=== PATIENT | male | born 1985 | race Asian ===

== ENCOUNTER → 2017-01-07 | Emergency (ER) | payer OTHER ==
[~2017-01-07] MED LIST: IBUPROFEN 400 MG TABLET (FP) PO ONE
--- NOTE | 2017-01-07 04:24 | PDOC ---
History of Present Illness - General History Source: Patient, Old Records Exam Limitations: No Limitations - History of Present Illness Initial Comments: 01/07/17 04:27 The patient is a 31 year old male with no significant past medical history, who presents to the emergency department today with right sided flank pain and right lower quadrant abdominal pain for 2 weeks. The patient states that his pain was worse today than at any point over the last 2 weeks. The patient states that he has never experienced symptoms like this before. The patient denies nausea, vomiting, and/or urinary problems. PCP: Dr. Franck Earl [phone] PAST MEDICAL HISTORY: No significant history reported PAST SURGICAL HISTORY: Right corneal surgery FAMILY HISTORY: Denied SOCIAL HISTORY: Occasional [place] use ALLERGIES: NKDA MEDICATIONS: Reviewed <Vinay Telles - Last Filed: 01/07/17 04:27> - General History Source: Patient <Lazaro Duvall - Last Filed: 01/07/17 05:20> - General Chief Complaint: Pain, Acute Stated Complaint: LWR RT SIDE ABD PAIN/FLANK PAIN Time Seen by Provider: 01/07/17 04:21 Past History <Vinay Telles - Last Filed: 01/07/17 04:27> - Psycho/Social/Smoking Cessation Hx Anxiety: No Suicidal Ideation: No Smoking History: Current some day smoker Information on smoking cessation initiated: No Hx Alcohol Use: No Drug/Substance Use Hx: No Substance Use Type: None <Lazaro Duvall - Last Filed: 01/07/17 05:20> - Past Medical History Allergies/Adverse Reactions: Allergies Allergy/AdvReac Type Severity Reaction Status Date / Time No Known Allergies Allergy Verified 01/07/17 03:53 Home Medications: Ambulatory Orders Ibuprofen 800 mg PO TID #30 tablet 01/07/17 Review of Systems - Review of Systems Able to Perform ROS?: Yes Comments:: 01/07/17 04:27 CONSTITUTIONAL: Absent: fever, chills, diaphoresis, generalized weakness, malaise, loss of appetite HEENT: Absent: rhinorrhea, nasal congestion, throat pain, throat swelling, difficulty swallowing, mouth swelling, ear pain, eye pain, visual Changes CARDIOVASCULAR: Absent: chest pain, syncope, palpitations, irregular heart rate, lightheadedness , peripheral edema RESPIRATORY: Absent: cough, shortness of breath, dyspnea with exertion, orthopnea, wheezing, stridor, hemoptysis GASTROINTESTINAL: Present: Abdominal pain Absent: abdominal distension, nausea, vomiting, diarrhea, constipation, melena, hematochezia GENITOURINARY: Absent: dysuria, frequency, urgency, hesitancy, hematuria, flank pain, genital pain MUSCULOSKELETAL: Present: Right flank pain. Absent: Neck pain SKIN: Absent: rash, itching, pallor HEMATOLOGIC/IMMUNOLOGIC: Absent: easy bleeding, easy bruising, lymphadenopathy, frequent infections ENDOCRINE: Absent: unexplained weight gain, unexplained weight loss, heat intolerance, cold intolerance NEUROLOGIC: Absent: headache, focal weakness or paresthesias, dizziness, unsteady gait, seizure, mental status changes, bladder or bowel incontinence PSYCHIATRIC: Absent: anxiety, depression, suicidal or homicidal ideation, hallucinations. <Vinay Telles - Last Filed: 01/07/17 04:27> *Physical Exam - Vital Signs Last Vital Signs Temp Pulse Resp BP Pulse Ox 98.2 F 81 18 120/87 100 01/07/17 03:52 01/07/17 03:52 01/07/17 03:52 01/07/17 03:52 01/07/17 03:52 - Physical Exam Comments: 01/07/17 04:27 GENERAL: Well developed, well nourished. Awake and alert. In no acute distress. HEENT: Normocephalic, atraumatic. PERRLA, EOMI. No conjunctival pallor. Sclerae are non -icteric. Moist mucous membranes. Oropharynx is clear. NECK: Supple. Full ROM. No JVD. Carotid pulses 2+ and symmetric, without bruits. No thyromegaly. No lymphadenopathy. CARDIOVASCULAR: Regular rate and rhythm. No murmurs, rubs, or gallops. Distal pulses are 2+ and symmetric. PULMONARY: No evidence of respiratory distress. Lungs clear to auscultation bilaterally. No wheezing, rales or rhonchi. ABDOMINAL: Soft. RLQ and right flank tenderness on palpation. Non-distended. No rebound or guarding. No organomegaly. Normoactive bowel sounds. MUSCULOSKELETAL Normal range of motion at all joints. No bony deformities or tenderness. No CVA tenderness. EXTREMITIES: No cyanosis. No clubbing. No edema. No calf tenderness. SKIN: Warm and dry. Normal capillary refill. No rashes. No jaundice. NEUROLOGICAL: Alert, awake, appropriate. Cranial nerves 2-12 intact. No deficits to light touch and temperature in face, upper extremities and lower extremities. No motor deficits in the in face, upper extremities and lower extremities. Normoreflexic in the upper and lower extremities. Normal speech. Toes are downgoing bilaterally. Gait is normal without ataxia. PSYCHIATRIC: Cooperative. Good eye contact. Appropriate mood and affect. <Vinay Telles - Last Filed: 01/07/17 04:27> - Vital Signs Last Vital Signs Temp Pulse Resp BP Pulse Ox 98.2 F 81 18 120/87 100 01/07/17 03:52 01/07/17 03:52 01/07/17 03:52 01/07/17 03:52 01/07/17 03:52 <Lazaro Duvall - Last Filed: 01/07/17 05:20> ED Treatment Course - RADIOLOGY Radiology Studies Ordered: Category Date Time Status SPIRAL- RENAL-STONE CT [CT] Stat CT Scan 01/07/17 04:21 Ordered <Lazaro Duvall - Last Filed: 01/07/17 05:20> Medical Decision Making - Medical Decision Making 01/07/17 05:17 Dr. Duvall: The scribe's documentation has been prepared under my direction and personally reviewed by me in its entirery. I confirm that the note above accurately reflects all work, treatment, procedures, and medical decision making performed by me. <Lazaro Duvall - Last Filed: 01/07/17 05:20> *DC/Admit/Observation/Transfer - Attestations Scribe Attestion: 01/07/17 04:27 Documentation prepared by Vinay Telles, acting as medical records receptionist for Lazaro Duvall DO. <Vinay Telles - Last Filed: 01/07/17 04:27> - Discharge Dispostion Admit: No <Lazaro Duvall - Last Filed: 01/07/17 05:20> Diagnosis at time of Disposition: Right flank pain - Discharge Dispostion Disposition: HOME Condition at time of disposition: Stable - Prescriptions Prescriptions: Ibuprofen 800 mg PO TID #30 tablet - Referrals Referrals: Adrián Earl MD [Primary Care Provider] - Yuri Ulloa MD [Staff Physician] - - Patient Instructions Printed Discharge Instructions: DI for Flank Pain
[2017-01-07 04:45] VITALS: PULSE 81; TEMP 98.2; BMI 22.4
[2017-01-07 04:51] LABS: URINE APPEARANCE CLEAR; URINE BILIRUBIN NEGATIVE (NEGATIVE); URINE COLOR LTYELLOW; URINE GLUCOSE (UA) NEGATIVE (NEGATIVE); URINE KETONE NEGATIVE (NEGATIVE); URINE LEUK ESTERASE NEGATIVE (NEGATIVE); URINE NITRITE NEGATIVE (NEGATIVE); URINE PROTEIN NEGATIVE (NEGATIVE); URINE UROBILINOGEN NEGATIVE E.U./dl (0.2-1.0)
[2017-01-07 05:02] LABS: URINE BLOOD 1+ (NEGATIVE)
[2017-01-07 05:04] LABS: URINE MUCUS RARE; URINE RBC 2 /hpf (0-3); URINE WBC 1 /hpf (3-5)
[2017-01-07 05:28] VITALS: BP 131/76
== END | disposition home or self-care (01) ==
LOC: JER 03:46
DX: R10.31 Right lower quadrant pain (principal)
CPT/HCPCS: 74176; 81003; 81015; 87086; 99283-25

== ENCOUNTER 2018-07-23 23:27 | Emergency (ER) | payer OTHER ==
[2018-07-23 23:41] VITALS: BMI 21.9
[2018-07-24] MEDS ORDERED: FAMOTIDINE 20 MG/50 ML IVPB 20 MG/50 ML MG IVPB ONE ×2 (00:02→00:57)
[2018-07-24] MEDS ORDERED: SODIUM CHLORIDE 1,000 ML IV STA (00:02)
[2018-07-24] MEDS ORDERED: ONDANSETRON 4 MG/2 ML VIAL IVPUSH ONE (00:02)
--- NOTE | 2018-07-24 00:13 | PDOC ---
History of Present Illness - General Chief Complaint: Nausea/Vomiting Stated Complaint: NAUSEA/VOMITING Time Seen by Provider: 07/23/18 23:53 History Source: Patient Exam Limitations: No Limitations - History of Present Illness Initial Comments: 07/24/18 00:08 Patient is a 33M with history of anxiety and appendectomy here today complaining of 1 week of vomiting. He states that he vomits after every meal he eats and states that it is because of stress from work. Denies blood in vomit. Patient endorses associated epigastric abdominal pain. Denies fevers, chills, dysuria. Last bowel movement today, no diarrhea or constipation. Describes abdominal pain as a burning squeezing pain. Past History - Past Medical History Allergies/Adverse Reactions: Allergies Allergy/AdvReac Type Severity Reaction Status Date / Time No Known Allergies Allergy Verified 07/23/18 23:41 Home Medications: Ambulatory Orders Escitalopram Oxalate [Lexapro -] 10 mg PO DAILY 07/24/18 Hydroxyzine HCl 10 mg PO DAILY 07/24/18 COPD: No CHF: No - Suicide/Smoking/Psychosocial Hx Smoking History: Never smoked Have you smoked in the past 12 months: No Information on smoking cessation initiated: No Hx Alcohol Use: No Drug/Substance Use Hx: No Substance Use Type: None Review of Systems - Review of Systems Comments:: 07/24/18 00:11 GENERAL/CONSTITUTIONAL: No fever or chills. No weakness. HEAD, EYES, EARS, NOSE AND THROAT: No change in vision. No sore throat. CARDIOVASCULAR: No chest pain or shortness of breath RESPIRATORY: No cough, wheezing, or hemoptysis. GASTROINTESTINAL: +nausea, +vomiting, no diarrhea or constipation. GENITOURINARY: No dysuria, frequency, or change in urination. MUSCULOSKELETAL: No joint or muscle swelling or pain. No neck or back pain. SKIN: No rash NEUROLOGIC: No headache, vertigo, loss of consciousness, or change in strength/ sensation. ENDOCRINE: No increased thirst. No abnormal weight change HEMATOLOGIC/LYMPHATIC: No anemia, easy bleeding, or history of blood clots. ALLERGIC/IMMUNOLOGIC: No hives or skin allergy. *Physical Exam - Vital Signs Last Vital Signs Temp Pulse Resp BP Pulse Ox 98.3 F 86 17 119/64 97 07/23/18 23:39 07/23/18 23:39 07/23/18 23:39 07/23/18 23:39 07/23/18 23:39 - Physical Exam Comments: 07/24/18 00:12 GENERAL: Awake, alert, and fully oriented, in no acute distress HEAD: No signs of trauma, normocephalic, atraumatic EYES: PERRLA, EOMI, sclera anicteric, conjunctiva clear ENT: Auricles normal inspection, hearing grossly normal, nares patent, oropharynx clear without exudates. Moist mucosa NECK: Normal ROM, supple, no lymphadenopathy, JVD, or masses LUNGS: No distress, speaks full sentences, clear to auscultation bilaterally HEART: Regular rate and rhythm, normal S1 and S2, no murmurs, rubs or gallops, peripheral pulses normal and equal bilaterally. ABDOMEN: Soft, nontender, normoactive bowel sounds. No guarding, no rebound. No masses EXTREMITIES: Normal inspection, Normal range of motion, no edema. No clubbing or cyanosis. NEUROLOGICAL: Cranial nerves II through XII grossly intact. Normal speech, no focal sensorimotor deficits SKIN: Warm, Dry, normal turgor, no rashes or lesions noted. Moderate Sedation - Procedure Monitoring Vital Signs: Procedure Monitoring Vital Signs Temperature 98.3 F 07/23/18 23:39 Pulse Rate 86 07/23/18 23:39 Respiratory Rate 17 07/23/18 23:39 Blood Pressure 119/64 07/23/18 23:39 O2 Sat by Pulse Oximetry (%) 97 07/23/18 23:39 ED Treatment Course - LABORATORY CBC & Chemistry Diagram: 07/24/18 00:37 07/24/18 00:37 Medical Decision Making - Medical Decision Making 07/24/18 00:12 Patient is 33M with history of appendectomy and anxiety/depression here today with vomiting x1 week. Vitals normal and stable. Nontender on exam. Patient appears well. Do not suspect acute intraabdominal process. Will evaluate for metabolic abnormalities and treat with fluids, zofran, pepcid. 07/24/18 02:30 CBC, CMP normal. UA normal. Patient tolerating PO. Will discharge home with GI follow up. *DC/Admit/Observation/Transfer Diagnosis at time of Disposition: Vomiting - Discharge Dispostion Disposition: HOME Condition at time of disposition: Good Decision to Admit order: No - Referrals Referrals: Adrián Earl MD [Primary Care Provider] - Alpesh Gutierres MD [Staff Physician] - - Patient Instructions Printed Discharge Instructions: DI for Vomiting -- Adult Additional Instructions: Please follow up with the GI doctor below. Please return if you have any new, worsening or concerning symptoms, especially increasing pain, repeated vomiting and fever. - Post Discharge Activity
--- NOTE | 2018-07-24 00:25 | PDOC ---
Attending Attestation - Resident Resident Name: Tho Connell - ED Attending Attestation I have performed the following: I have examined & evaluated the patient, The case was reviewed & discussed with the resident, I agree w/resident's findings & plan, Exceptions are as noted - HPI HPI: 07/24/18 00:24 33y M hx of anxiety, presents with 1 week of vomiting with any oral intake associated with some epigastric burning, and loose nonbloody stool. Pt notes the sypmtoms are worse when he sits/rests. pt evin any fever/chills, sob, parkinson, blood in stool or vomiting. no sick contacts or recent travel. - Physicial Exam PE: 07/24/18 00:42 GENERAL: The patient is awake, alert, and fully oriented, Nontoxic - in no acute distress. HEAD: Normocephalic, atraumatic. EYES: extraocular movements intact, sclera anicteric, conjunctiva clear. ENT: Normal voice, Moist mucous membranes. NECK: Normal range of motion, supple LUNGS: Breath sounds equal, clear to auscultation bilaterally. No wheezes, no rhonchi, no rales. HEART: Regular rate and rhythm, normal S1 and S2 without murmur, rub or gallop. ABDOMEN: Soft, nontender, No guarding, no rebound. . No CVA tenderness EXTREMITIES: Normal range of motion, No clubbing or cyanosis. No cords, erythema , or tenderness. NEUROLOGICAL: No facial assymetry, Normal speech, PSYCH: Normal mood, normal affect. SKIN: Warm, Dry, normal turgor, - Medical Decision Making 07/24/18 00:42 Suspect possible gastroenteritis, will check labs, fluids and Zofran for symptomatically Will abdominal tenderness suggest localized peritonitis 07/24/18 02:45 labs unremarkble feeling improved will dc with pmd fu and outpatient mangment
[2018-07-24] MEDS ORDERED: ONDANSETRON 4 MG/2 ML VIAL ONE (00:57)
[2018-07-24 00:58] LABS: BASO % 0.6 % (0-2.0); EOS % 1.7 % (0-4.5); HEMATOCRIT 41.3 % (35.4-49); HEMOGLOBIN 14.7 GM/dL (11.7-16.9); LYMPH % 28.7 % (8-40); MCH 29.7 pg (25.7-33.7); MCHC 35.6 g/dl (32.0-35.9); MEAN CELL VOLUME 83.4 fl (80-96); MEAN PLT VOLUME 9.9 fl (7.5-11.1); MONO % 8.8 % (3.8-10.2); NEUT % 60.2 % (42.8-82.8); PLATELET COUNT 158 K/MM3 (134-434); RBC 4.95 M/mm3 (4.00-5.60); RDW 13.6 % (11.9-15.9); WHITE BLOOD COUNT 6.2 K/mm3 (4.0-10.0)
[2018-07-24 01:23] LABS: URINE APPEARANCE CLEAR; URINE BILIRUBIN NEGATIVE (<2.0 mg/dL); URINE COLOR YELLOW; URINE GLUCOSE (UA) NEGATIVE (NEGATIVE); URINE KETONE NEGATIVE (NEGATIVE); URINE LEUK ESTERASE NEGATIVE (NEGATIVE); URINE NITRITE NEGATIVE (NEGATIVE); URINE PROTEIN NEGATIVE (NEGATIVE); URINE UROBILINOGEN NEGATIVE mg/dL (0.2-1.0)
[2018-07-24 01:33] LABS: ALBUMIN 4.1 g/dl (3.4-5.0); ALK PHOS 79 U/L (45-117); ANION GAP 8 MMOL/L (8-16); BILIRUBIN,TOTAL 0.8 mg/dL (0.2-1); BLOOD UREA NITROGEN 11 mg/dL (7-18); CALCIUM 8.9 mg/dL (8.5-10.1); CHLORIDE 103 mmol/L (98-107); CO2 27 mmol/L (21-32); CREATININE 0.6 mg/dL (0.55-1.3); GLUCOSE,RANDOM 89 mg/dL (74-106); LIPASE 198 U/L (73-393); POTASSIUM 4.7 mmol/L (3.5-5.1); SGOT/AST 33 U/L (15-37); SGPT/ALT 20 U/L (13-61); SODIUM 139 mmol/L (136-145); TOT PROT 7.5 g/dl (6.4-8.2)
[2018-07-24 02:59] VITALS: BP 110/78; PULSE 89; TEMP 98.6
== END 2018-07-24 02:59 | disposition home or self-care (01) ==
LOC: JER 23:27
PROC: 3E033GC Introduction of Other Therapeutic Substance into Peripheral Vein, Percutaneous Approach (ICD-10-PCS; principal; 2018-07-23)
PROC: 3E033GC Introduction of Other Therapeutic Substance into Peripheral Vein, Percutaneous Approach (ICD-10-PCS; 2018-07-23)
DX: K52.9 Noninfective gastroenteritis and colitis, unspecified (principal); F41.9 Anxiety disorder, unspecified
CPT/HCPCS: 36415; 80053; 81003; 83690; 85025; 99281-25; J7030

== ENCOUNTER 2023-05-15 15:49 | Emergency (ER) | payer OTHER ==
[2023-05-15 16:01] VITALS: BP 104/71; PULSE 89; RESP 18; TEMP 98.3; BMI 23.1
== END 2023-05-15 18:07 | disposition home or self-care (01) ==
LOC: JERFT 15:49
DX: S39.012A Strain of muscle, fascia and tendon of lower back, initial encounter (principal); M54.50 Low back pain, unspecified; M54.6 Pain in thoracic spine; V49.40XA Driver injured in collision with unspecified motor vehicles in traffic accident, initial encounter; Y93.I9 Activity, other involving external motion
CPT/HCPCS: 72050-TC-FY; 72070-TC-FY; 72100-TC-FY